=== PATIENT | male | born 2005 | race Caucasian/White ===

== ENCOUNTER 2025-01-31 15:37 | Outpatient (REF) | payer MEDICAID, SELFPAY ==
[2025-01-31 16:27] LABS: Abs Immature Grans 0.00 10^3/uL (0.0-0.06); HCT 43.2 % (40.0-50.0); HGB 14.4 g/dL (13.5-17.5); Immature Grans % 0.0 %; MCH 29.5 pg (27.0-33.0); MCHC 33.3 % (32.0-36.0); MCV 89 fL (80-95); MPV 10.5 fL (8.0-11.0); Platelet Count 286 10^3/uL (130-400); RBC 4.88 10^6/uL (4.36-5.78); RDW 11.7 % (11.8-14.1); RDW-SD 37.5 fL; WBC 3.97 10^3/uL (4.4-10.8)
[2025-01-31 17:05] LABS: ALT 22 U/L (16-63); AST 17 U/L (15-37); Albumin 4.4 g/dL (3.4-5.0); Alkaline Phosphatase 100 U/L (46-116); Anion Gap 6.5 mmol/L (3-11); BUN 5 mg/dL (7-18); Bilirubin, Total 0.5 mg/dL (0.2-1.0); CO2 29.5 mmol/L (21.0-32.0); Calcium 9.5 mg/dL (8.5-10.1); Calculated LDL 73 mg/dL (<100); Chloride 105 mmol/L (98-107); Cholesterol 133 mg/dL (<200); Estimated GFR 136.12 (mL/min/1.73m2); Folate 10.4 ng/mL (8.6-20.0); Glucose 97 mg/dL (74-106); HDL Cholesterol 46 mg/dL (>or=40); Potassium 4.5 mmol/L (3.5-5.1); Sodium 141 mmol/L (136-145); TSH 1.34 uIU/mL (0.52-4.13); Total Protein 7.2 g/dL (6.4-8.2); Triglyceride 70 mg/dL (<150); Vitamin B12 263 pg/mL (193-986); Vitamin D 25 Total 15 ng/mL (30-100)
== END 2025-01-31 15:38 | disposition home or self-care (01) ==
LOC: NCHCN 15:37
PROVIDERS: Visit Provider Family Medicine
DX: Z00.00 Encounter for general adult medical examination without abnormal findings (principal)
CPT/HCPCS: 80053; 80061; 82306; 82607; 82746; 84443; 85025

== ENCOUNTER 2025-06-19 18:21 | Emergency (ER) | payer MEDICAID, SELFPAY ==
[2025-06-19] VITALS (24 sets, daily range): BP systolic 113–135; BP diastolic 61–89; PULSE 66–94; RESP 10–28; TEMP 37; O2SAT 94–99
--- NOTE | 2025-06-19 18:15 | DI.RAD_ITS ---
Exam(s) XR CHEST 2V PA LATERAL EXAM: XR CHEST 2V PA LATERAL CLINICAL HISTORY: chest pain. TECHNIQUE: 2D digital imaging was performed. COMPARISON: No exams were available for comparison FINDINGS: 2 views: Chest leads in place. Heart size is normal. The mediastinum is not widened. There is bilateral hyperinflation but no confluent infiltrates nor pleural effusions and there is no pneumothorax. No fractures. IMPRESSION: No acute pulmonary findings.Bilateral hyperinflation noted. DATA REPOSITORY: RADIATION DOSE DELIVERED:
--- NOTE | 2025-06-19 18:15 | RT.EKG_ITS ---
APPROVED REPORT Exam: Resting ECG Reason for Exam: Chest Pain Patient Location: E HR:77 bpm ECG Measurements Heart Rate 77 AXIS NC 166 P 67 QRSd 77 QRS 51 QT 348 T 58 QTc 394 Conclusion Sinus rhythm...normal P axis, V-rate 60- 99 No STEMI
[2025-06-19 19:07] LABS: Abs Immature Grans 0.01 10^3/uL (0.0-0.06); HCT 42.0 % (40.0-50.0); HGB 14.6 g/dL (13.5-17.5); Immature Grans % 0.2 %; MCH 29.6 pg (27.0-33.0); MCHC 34.8 % (32.0-36.0); MCV 85 fL (80-95); MPV 8.9 fL (8.0-11.0); Platelet Count 305 10^3/uL (130-400); RBC 4.94 10^6/uL (4.36-5.78); RDW 12.1 % (11.8-14.1); RDW-SD 37.5 fL; WBC 5.57 10^3/uL (4.4-10.8)
[2025-06-19 19:27] LABS: ALT 13 U/L (10-49); AST 19 U/L (<34); Albumin 4.7 g/dL (3.2-5.0); Alkaline Phosphatase 84 U/L (46-116); Anion Gap 8.1 mmol/L (3-11); BUN 10 mg/dL (9-23); Bilirubin, Total 1.1 mg/dL (0.2-1.2); CO2 27.9 mmol/L (20.0-31.0); Calcium 9.7 mg/dL (8.3-10.6); Chloride 103 mmol/L (98-107); Glucose 102 mg/dL (74-106); Potassium 3.8 mmol/L (3.5-5.1); Sodium 139 mmol/L (136-145); Total Protein 7.5 g/dL (5.7-8.2)
--- NOTE | 2025-06-19 19:29 | W.ED.GENAD ---
Discharge Plan Disposition Patient Disposition: Home Discharge Details Clinical Impression: Atypical chest pain Primary Care Provider: Unknown,Unknown ED Provider: Cullen Moe Home Meds and New Rx's Prescriptions: No Action No Known Home Meds Discharge Instructions Instructions: Chest pain Additional Instructions: Please follow-up with your primary care provider regarding your visit to the emergency department today. Be sure to discuss results of all test performed here today to include radiology, and laboratory testing as well as results for any pending cultures. Should your symptoms worsen, or if you develop new concerning symptoms, please return immediately emergency department for further evaluation. Stand Alone Forms: Portal Information HPI General Date/Time Provider Initiated Documentation: 06/19/25 18:28. HPI Narrative: MDM/Narrative: 20-year-old male presents for evaluation of chest pain which began while he was working this afternoon. Vital signs in normal limits. Physical exam unremarkable. Bedside ultrasound shows no evidence of cardiac hypertrophy, left ventricular outflow tract obstruction, hypokinesis, pericardial effusion or any other life-threatening pathology. Given patient's young age and risk factors I have low suspicion for ACS, however will consider pneumothorax, as well as possible arrhythmia. Will obtain screening labs, EKG, cardiac telemetry and chest x-ray. Further, during interviewing the patient and his mother, the topic of his father passing away roughly 2 years ago came up without me asking specific questions about him at least 5 times during conversation about his chest pain. I am suspicious that dealing with grief/anxiety over the loss of his father may be driving the symptoms. As such once medically clear, will engage with [facility] health services to see if there are any counseling services available. ED Course: EKG, chest x-ray, lab work all unremarkable. Case discussed with [facility] human services, who evaluated the patient at bedside to enroll him in outpatient behavioral health treatment. Patient stable for discharge at this time. 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 Patient states he was working moving some boxes notes that his heart rate was up and he was having increased work of breathing, doing this for approximately 1 hour before suddenly the chest pain began. Denies any radiation of the pain, notes associated diaphoresis and shortness of breath but denies associated nausea. Notes that symptoms have resolved since arrival in the emergency department. He denies any recent exercise intolerance, but reports several episodes when he was in high school of where he would develop chest pain narrowing of his vision and feel like he was going to pass out, states he has never been evaluated for these issues. Today but he mentally denies any syncope, and family medical history about his father's limited since his passing 2 years ago from stage IV lung cancer. Mother reports no known early onset cardiac disease in her family. ROS: Negative besides as mentioned above Exam: Gen: A&O NAD HEENT: NCAT, EOMI, not icteric. External ears normal. No rhinorrhea. Moist mucous membranes. Neck: Supple, full range of motion, no observable masses, No meningeal sign. Lungs: No Respiratory distress. CV: RRR, no edema. Abdomen: Soft, nondistended, No rebound tenderness. MSK: No joint swelling, no redness. Skin: No rashes, petechiae, lesions. Normal color per patient. Neuro: Normal Gait, Grossly intact. Psych: Appropriate for situation. Rhythm: NSR Rate: 77 [place]: Normal axis Intervals: Normal intervals Other findings: No acute ST segment or T wave changes to suggest acute ischemia. Labs: Laboratory Tests Range/Units 06/19/25 18:58 WBC (4.4-10.8) 10^3/uL 5.57 RBC (4.36-5.78) 10^6/uL 4.94 Hgb (13.5-17.5) g/dL 14.6 Hct (40.0-50.0) % 42.0 MCV (80-95) fL 85 MCH (27.0-33.0) pg 29.6 MCHC (32.0-36.0) % 34.8 RDW (11.8-14.1) % 12.1 Plt Count (130-400) 10^3/uL 305 MPV (8.0-11.0) fL 8.9 Immature Gran % % 0.2 Neutrophils % % 54.7 Lymphocytes % % 37.9 Monocytes % % 5.9 Eosinophils % % 0.9 Basophils % % 0.4 Nucleated RBC % (0.0-0.3) % 0.0 Absolute Neutrophils (1.2-6.7) 10^3/uL 3.05 Absolute Lymphocytes (1.2-3.4) 10^3/uL 2.11 Absolute Monocytes (0.1-0.8) 10^3/uL 0.33 Absolute Eosinophils (0.0-0.7) 10^3/uL 0.05 Absolute Basophils (0.0-0.2) 10^3/uL 0.02 Sodium (136-145) mmol/L 139 Potassium (3.5-5.1) mmol/L 3.8 Chloride (98-107) mmol/L 103 Carbon Dioxide (20.0-31.0) mmol/L 27.9 Anion Gap (3-11) mmol/L 8.1 BUN (9-23) mg/dL 10 Creatinine (0.73-1.18) mg/dL 0.92 Est GFR (CKD-EPI 2020) (mL/min/1.73m2) 104.82 Glucose (74-106) mg/dL 102 Calcium (8.3-10.6) mg/dL 9.7 Total Bilirubin (0.2-1.2) mg/dL 1.1 AST (<34) U/L 19 ALT (10-49) U/L 13 Alkaline Phosphatase (46-116) U/L 84 Troponin I (<54) ng/L < 3 Total Protein (5.7-8.2) g/dL 7.5 Albumin (3.2-5.0) g/dL 4.7 Radiology: Accession No. : [id number] Creator : Gume Loo Dictator : Gume [employer] Infrastructure Consultant : Health And Physical Education Teacher : Gume Loo Approver2 : Report Date : 06/19/2025 19:16:12 Exam(s) XR CHEST 2V PA LATERAL EXAM: XR CHEST 2V PA LATERAL CLINICAL HISTORY: chest pain. TECHNIQUE: 2D digital imaging was performed. COMPARISON: No exams were available for comparison FINDINGS: 2 views: Chest leads in place. Heart size is normal. The mediastinum is not widened. There is bilateral hyperinflation but no confluent infiltrates nor pleural effusions and there is no pneumothorax. No fractures. IMPRESSION: No acute pulmonary findings.Bilateral hyperinflation noted. DATA REPOSITORY: RADIATION DOSE DELIVERED: Related Data Home Medications ?Medication ?Instructions ?Recorded ?Confirmed Unknown [No Known Home Meds] 06/19/25 06/19/25 Allergies Allergy/AdvReac Type Severity Reaction Status Date / Time No Known Allergies Allergy Unverified 06/19/25 18:32 General Stated Complaint: Chest Pain BUSHRA: 3 Course Vital Signs Vital signs: Vital Signs Temperature 37.0 C 06/19/25 18:30 Pulse 82 06/19/25 18:30 Respiratory Rate 16 06/19/25 18:30 Blood Pressure 123/81 06/19/25 18:30 Pulse Oximetry 98 06/19/25 18:30 Temperature 37.0 C 06/19/25 18:30 Pulse 82 06/19/25 18:30 Respiratory Rate 16 06/19/25 18:30 Blood Pressure 123/81 06/19/25 18:30 Pulse Oximetry 98 06/19/25 18:30 Pain Level 4 06/19/25 18:30 Lab/Test Results Lab/Test Results: Laboratory Tests Range/Units 06/19/25 18:58 WBC (4.4-10.8) 10^3/uL 5.57 RBC (4.36-5.78) 10^6/uL 4.94 Hgb (13.5-17.5) g/dL 14.6 Hct (40.0-50.0) % 42.0 MCV (80-95) fL 85 MCH (27.0-33.0) pg 29.6 MCHC (32.0-36.0) % 34.8 RDW (11.8-14.1) % 12.1 Plt Count (130-400) 10^3/uL 305 MPV (8.0-11.0) fL 8.9 Immature Gran % % 0.2 Neutrophils % % 54.7 Lymphocytes % % 37.9 Monocytes % % 5.9 Eosinophils % % 0.9 Basophils % % 0.4 Nucleated RBC % (0.0-0.3) % 0.0 Absolute Neutrophils (1.2-6.7) 10^3/uL 3.05 Absolute Lymphocytes (1.2-3.4) 10^3/uL 2.11 Absolute Monocytes (0.1-0.8) 10^3/uL 0.33 Absolute Eosinophils (0.0-0.7) 10^3/uL 0.05 Absolute Basophils (0.0-0.2) 10^3/uL 0.02 Sodium (136-145) mmol/L 139 Potassium (3.5-5.1) mmol/L 3.8 Chloride (98-107) mmol/L 103 Carbon Dioxide (20.0-31.0) mmol/L 27.9 Anion Gap (3-11) mmol/L 8.1 BUN (9-23) mg/dL 10 Creatinine (0.73-1.18) mg/dL 0.92 Est GFR (CKD-EPI 2020) (mL/min/1.73m2) 104.82 Glucose (74-106) mg/dL 102 Calcium (8.3-10.6) mg/dL 9.7 Total Bilirubin (0.2-1.2) mg/dL 1.1 AST (<34) U/L 19 ALT (10-49) U/L 13 Alkaline Phosphatase (46-116) U/L 84 Total Protein (5.7-8.2) g/dL 7.5 Albumin (3.2-5.0) g/dL 4.7 PFSH All Active Problems (Updated 06/19/25 @ 21:22 by Cullen Moe MD) Atypical chest pain (Acute) Social History Smoking/Tobacco Use Status: Never Smoking risk assessment performed?: Yes Alcohol Intake: never Substance use type: does not use Do you feel safe at home: Yes Do you feel safe in your relationship?: Yes POCUS Exam (ED) Limited Cardiac Exam DATE OF EXAM: 06/19/25 TIME OF EXAM: 18:31 PROVIDER THAT PERFORMED THE STUDY: Cullen Moe REASON FOR EXAM: Chest pain and Dyspnea VISUALIZED STRUCTURES: Left atrium, Left ventricle, LVOT, Right atrium, Right ventricle, Aortic valve, Mitral valve and Interventricular septum VIEW OBTAINED: Parasternal long-axis, Parasternal short-axis and Subxiphoid PERTINENT FINDINGS/IMPRESSION: No apparent abnormalities; No LV dysfunction, No pericardial effusion, No RV dilation and No RV dysfunction INCIDENTAL FINDINGS: Apical four-chamber view obscured by rib shadowing Exam complete
[2025-06-19 19:31] LABS: Troponin I < 3 ng/L (<54)
== END 2025-06-19 21:51 | disposition home or self-care (01) ==
LOC: ER 21:51
PROVIDERS: Emergency Provider General Practice; PCP Family Medicine
DX: R07.89 Other chest pain (principal)
CPT/HCPCS: 99283; 99284; 36415; 80053; 93005; 93308; 71046; 84484; 85025; 93010